=== PATIENT | female | born 1990 | race Two or more races ===

== ENCOUNTER 2021-01-21 03:49 | Emergency (ER) | payer SELFPAY ==
[~2021-01-21] VITALS: Ht 152.4 cm; Wt 70.8 kg
[2021-01-21] MEDS ORDERED: LORAZEPAM 1 MG TABLET ONE (04:16)
--- NOTE | 2021-01-21 04:20 | NUR ---
BIBRA C/O "HAVING ANXIETY ATTACK" X 2 WEEKS ON AND OFF. PT ALERT AND OREINTED X4. AMBULATORY WITH NON LABORED BREATHING.
[2021-01-21] MEDS ORDERED: LORAZEPAM 1 MG TABLET PO ONE (04:30)
[2021-01-21] MEDS ORDERED: ALPR1TAB2 PO (05:32)
--- NOTE | 2021-01-21 05:39 | NUR ---
Patient discharged to home in stable condition. Rx and Written and verbal after care instructions given. Patient verbalizes understanding of instruction.
[2021-01-21 05:40] VITALS: BP 119/75
== END 2021-01-21 05:40 | disposition home or self-care (01) ==
LOC: EDBD 03:53 → ER 03:53
DX: F41.9 Anxiety disorder, unspecified (principal); Z79.899 Other long term (current) drug therapy

== ENCOUNTER 2021-03-07 04:22 | Emergency (ER) | payer BC ==
[~2021-03-07] VITALS: Ht 149.9 cm; Wt 72.6 kg
[~2021-03-07 04:22] MED LIST: ALPR1TAB2 PO
--- NOTE | 2021-03-07 04:58 | NUR ---
BIB SELF C/O EPIGASTRIC PAIN THAT MOVES UPWARD DESCRIBED "BURNING" SINCE YESTERDAY. PT BREATHING EVEN AND UNLABORED ALL VSS MD WAS AT BEDSIDE FOR EVAL.
--- NOTE | 2021-03-07 05:00 | NUR ---
PT C/O EPIGASTRIC PAIN STARTED LAST NIGHT PT A/O X 3
--- NOTE | 2021-03-07 05:09 | NUR ---
URINE COLLECTED AND SENT TO LAB
[2021-03-07] MEDS ORDERED: LIDOCAINE VISCOUS 2% UD 15 ML UDC ONE (05:16)
[2021-03-07] MEDS ORDERED: MAG HYDROX/AL HYDROX/SIMETH 30 ML UDC ONE (05:16)
[2021-03-07] MEDS ORDERED: FAMOTIDINE (20 MG) 20 MG TABLET ONE (05:17)
[2021-03-07 05:23] LABS: BASOPHILS % (AUTO) 0.1 % (0.0-2.0); EOSINOPHILS % (AUTO) 0.3 % (0.0-6.0); HEMATOCRIT 42 % (33-45); LYMPHOCYTES # (AUTO) 1.8 K/uL (0.8-4.8); LYMPHOCYTES % (AUTO) 13.9 % (20.0-44.0); MEAN CORPUSCULAR HGB CONC 34 g/dl (31.0-36.0); MEAN CORPUSCULAR VOLUME 92 fL (82-100); MONOCYTES # (AUTO) 0.5 K/uL (0.1-1.30); MONOCYTES % (AUTO) 3.9 % (2.0-12.0); NEUTROPHILS # (AUTO) 10.4 K/uL (1.8-8.9); NEUTROPHILS % (AUTO) 81.8 % (43.0-81.0); PLATELET COUNT (AUTO) 310 K/uL (150-450); RED BLOOD CELL COUNT(AUTO) 4.56 MIL/uL (4.0-5.2); WHITE BLOOD COUNT (AUTO) 12.8 K/uL (4.3-11.0)
[2021-03-07] MEDS ORDERED: FAMO-131 PO (05:26)
[2021-03-07] MEDS ORDERED: MAG-55 PO (05:26)
[2021-03-07] MEDS ORDERED: MAG HYDROX/AL HYDROX/SIMETH 30 ML UDC PO ONE (05:30)
[2021-03-07] MEDS ORDERED: FAMOTIDINE (20 MG) 20 MG TABLET PO ONE (05:30)
[2021-03-07] MEDS ORDERED: LIDOCAINE VISCOUS 2% UD 15 ML UDC MM ONE (05:30)
[2021-03-07 05:32] LABS: CALCIUM, SERUM 8.9 mg/dL (8.5-10.1); CREATININE 0.7 mg/dL (0.6-1.3); POTASSIUM 3.5 mmol/L (3.5-5.1)
[2021-03-07 05:38] LABS: BILIRUBIN,URINE NEGATIVE (NEGATIVE); COLOR,URINE YELLOW (YELLOW); LEUKOCYTE ESTERASE ,URINE NEGATIVE (NEGATIVE); NITRITE, URINE NEGATIVE (NEGATIVE); PROTEIN,URINE NEGATIVE (NEGATIVE); UGLUCOSE NEGATIVE (NEGATIVE); UROBILINOGEN,URINE 0.2 EU/dL (0.2)
[2021-03-07 05:49] LABS: BILIRUBIN,DIRECT 0.1 mg/dL (0.0-0.2); BILIRUBIN,TOTAL 0.4 mg/dL (0.2-1.0); TOTAL PROTEIN, SERUM 8.6 g/dL (6.4-8.2)
[2021-03-07 06:08] VITALS: BP 126/81
== END 2021-03-07 06:08 | disposition home or self-care (01) ==
LOC: EDUNIT# 04:22 → ER 04:25
DX: K21.9 Gastro-esophageal reflux disease without esophagitis (principal); F41.9 Anxiety disorder, unspecified; Z79.899 Other long term (current) drug therapy
CPT/HCPCS: 36415; 80048-TC; 80076-TC; 83690-TC; 84703-TC; 85025-TC

== ENCOUNTER 2021-03-19 20:49 | Emergency (ER) | payer BC ==
[~2021-03-19] VITALS: Ht 149.9 cm; Wt 69.4 kg
[~2021-03-19 20:49] MED LIST changes: +FAMO-131 PO; +MAG-55 PO
--- NOTE | 2021-03-19 21:04 | NUR ---
EMT AT BEDSIDE
--- NOTE | 2021-03-19 21:05 | NUR ---
PATIENT BIBSELF C/O PALPITATIONS SINCE 1AM. PATIENT IS A/O X 4, RR EVEN AND UNLABORED, NO SOB NOTED. PATIENT CONNECTED TO [employer]ID[employer] MONITOR AND POX.
[2021-03-19 23:01] LABS: BASOPHILS % (AUTO) 0.2 % (0.0-2.0); EOSINOPHILS % (AUTO) 0.6 % (0.0-6.0); HEMATOCRIT 41 % (33-45); LYMPHOCYTES # (AUTO) 1.7 K/uL (0.8-4.8); LYMPHOCYTES % (AUTO) 24.3 % (20.0-44.0); MEAN CORPUSCULAR HGB CONC 34 g/dl (31.0-36.0); MEAN CORPUSCULAR VOLUME 91 fL (82-100); MONOCYTES # (AUTO) 0.4 K/uL (0.1-1.30); MONOCYTES % (AUTO) 5.5 % (2.0-12.0); NEUTROPHILS # (AUTO) 4.9 K/uL (1.8-8.9); NEUTROPHILS % (AUTO) 69.4 % (43.0-81.0); PLATELET COUNT (AUTO) 325 K/uL (150-450); RED BLOOD CELL COUNT(AUTO) 4.47 MIL/uL (4.0-5.2); WHITE BLOOD COUNT (AUTO) 7.1 K/uL (4.3-11.0)
[2021-03-19 23:08] LABS: AMYLASE 44 U/L (25-115); CALCIUM, SERUM 8.8 mg/dL (8.5-10.1); CARBON DIOXIDE 23 mmol/L (21-32); CHLORIDE 103 mmol/L (98-107); CREATININE 0.7 mg/dL (0.6-1.3); GLUCOSE 96 mg/dL (74-106); MAGNESIUM 2.1 mg/dL (1.8-2.4); POTASSIUM 3.4 mmol/L (3.5-5.1); SODIUM SERUM 139 mmol/L (136-145); UREA NITROGEN, BLOOD 6 mg/dL (7-18)
[2021-03-19 23:11] LABS: CHOLESTEROL 146 mg/dL (<200); HDL CHOLESTEROL 38 mg/dL (40-60); LDL 85 mg/dL (0-99); TRIGLYCERIDES 85 mg/dL (30-150)
[2021-03-20] MEDS ORDERED: HYDR-4209 PO (03:23)
[2021-03-20] MEDS ORDERED: ONDA4TAB5 PO (03:23)
[2021-03-20 03:37] VITALS: BP 133/70
--- NOTE | 2021-03-20 03:37 | NUR ---
Patient discharged to home in stable condition. Written and verbal after care instructions given. Patient verbalizes understanding of instruction.
== END 2021-03-20 03:37 | disposition home or self-care (01) ==
LOC: ER 20:50
DX: K21.9 Gastro-esophageal reflux disease without esophagitis (principal); F41.9 Anxiety disorder, unspecified; R07.9 Chest pain, unspecified; Z79.899 Other long term (current) drug therapy
CPT/HCPCS: 36415; 71046; 80048-TC; 80061-TC; 82150-TC; 83735-TC; 84484-TC; 85025-TC